=== PATIENT | male | born 1955 | race Caucasian/White ===

== ENCOUNTER 2024-08-26 22:59 | Inpatient (IN) | payer MEDICARE ==
[~2024-08-26] VITALS: Ht 185.4 cm; Wt 75.0 kg
[2024-08-26 23:34] LABS: BASOPHILS % (AUTO) 0.7 % (0-1); EOSINOPHILS # (AUTO) 0.1 X10'3 (0-0.9); EOSINOPHILS % (AUTO) 2.3 % (0-6); HEMATOCRIT 40.4 % (42.0-52.0); HEMOGLOBIN 13.7 g/dl (14.0-17.9); LYMPHOCYTES % (AUTO) 20.3 % (21-51); MEAN CORPUSCULAR HEMOGLOBIN 31.5 PG (27.0-31.0); MEAN CORPUSCULAR VOLUME 92.7 FL (78-98); MEAN PLATELET VOLUME 9.9 FL (7.4-10.4); MONOCYTES # (AUTO) 0.4 X10'3 (0-0.9); MONOCYTES % (AUTO) 7.5 % (2-12); NEUTROPHILS # (AUTO) 3.4 X10'3 (1.8-7.7); NEUTROPHILS % (AUTO) 69.2 % (42-75); PLATELET COUNT 125 X10'3 (140-440); RED BLOOD COUNT 4.36 X10'6 (4.70-6.10); RED CELL DISTRIBUTION WIDTH 15.8 % (11.5-14.5); WHITE BLOOD COUNT 4.9 X10'3 (4.5-11.0)
[2024-08-26 23:46] LABS: ALANINE AMINOTRANSFERASE 49 U/L (12-78); ALBUMIN/GLOBULIN RATIO 1.3 (1.1-1.5); ALKALINE PHOSPHATASE 117 IU/L (46-116); ANION GAP 8 (8-16); ASPARTATE AMINO TRANSFERASE 33 U/L (10-37); BILIRUBIN,TOTAL 1.4 MG/DL (0.1-1.0); BLOOD UREA NITROGEN 17 MG/DL (7-18); BUN/CREATININE RATIO 19.1 (10.0-20.0); CALCIUM 8.6 MG/DL (8.5-10.1); CHLORIDE 105 MMOL/L (99-107); CREATININE 0.89 MG/DL (0.60-1.10); GLUCOSE 226 MG/DL (70-104); SODIUM 140 MMOL/L (135-145); TOTAL CARBON DIOXIDE 27.1 MMOL/L (24-32); eCRCL 83 ML/MIN; eGFR 85 ML/MIN
[2024-08-26 23:55] LABS: PRO BRAIN NATRIURETIC PEPTIDE 3291 PG/ML (0-125)
[2024-08-27] VITALS (8 sets, daily range): BP systolic 110–130; BP diastolic 69–95; PULSE 86–97; RESP 15–24; TEMP 97.6–98; O2SAT 95–97
[2024-08-27] MEDS ORDERED: diltiazem-D5W 125mg/125ml 125 ML IV SCH (01:20)
[2024-08-27] MEDS: diltiazem-NS 100mg/100ml 100 ML IV SCH (01:48)
[2024-08-27] MEDS ORDERED: potassium Cl 40MEQ/1/2NS 520ml 520 ML IV PRN (02:05)
[2024-08-27] MEDS ORDERED: mag hydrox/Alum hydrox/simeth 30ml oral suspension PO PRN (02:05)
[2024-08-27] MEDS ORDERED: magnesium sulf-water 2g/50mL 50 ML IV PRN (02:05)
[2024-08-27] MEDS ORDERED: ondansetron/PF 4mg/2ml inj IV PRN (02:05)
[2024-08-27] MEDS ORDERED: magnesium hydroxide 30ml (MOM) UD suspension PO PRN (02:05)
[2024-08-27] MEDS ORDERED: magnesium sulf-water 4G/100mL 100 ML IV PRN (02:05)
[2024-08-27] MEDS ORDERED: potassium Cl 20 mEq SR tablet PO PRN (02:05)
[2024-08-27 02:46] LABS: MAGNESIUM 1.3 MG/DL (1.5-2.4)
[2024-08-27 02:49] LABS: APTT 27 SECONDS (22-32); INR 1.2 INR; PROTHROMBIN TIME 12.1 SECONDS (9.0-12.0)
[2024-08-27 02:54] LABS: HEMOGLOBIN A1C 9.2 % (4.5-6.2)
[2024-08-27] MEDS: furosemide 10 MG/1 ML 10ml inj IV SCH (03:00)
[2024-08-27] MEDS ORDERED: GLIP10TA18 PO (03:45)
[2024-08-27] MEDS ORDERED: METF-436 PO (03:45)
[2024-08-27] MEDS ORDERED: ATOR10TA87 PO (03:45)
[2024-08-27] MEDS ORDERED: DAPA10TA PO (03:45)
[2024-08-27] MEDS ORDERED: DEXTROSE 15 GM of carb/4 tabs (each vial/BOTTLE has 4 tablets) PO PRN ×2 (06:20)
[2024-08-27] MEDS ORDERED: dextrose 50%-water 50ml dispensing syringe IV PRN ×2 (06:20)
[2024-08-27] MEDS ORDERED: glucagon, human recombinant 1mg kit SUBCUT PRN (06:20)
[2024-08-27] MEDS: INSULIN LISPRO 100 UNIT/ML INSULN.PEN MULTI-DOSE SQ SCH ×2 (07:27→09:05)
[2024-08-27] MEDS: K and/or MAG REPLACEMENT MC SCH (07:40)
[2024-08-27] MEDS: apixaban 5mg tablet PO SCH (07:40)
[2024-08-27] MEDS: docusate sod 100mg capsule PO SCH (07:40)
[2024-08-27] MEDS: acetaminophen 325mg tablet PO PRN (14:28)
[2024-08-27] MEDS: Melatonin 3mg tablet PO ONE (23:02)
[2024-08-27] MEDS: insulin glargine (Lantus) pen - multi-dose SQ SCH (23:10)
[2024-08-27] MEDS: magnesium Cl slow-release 64mg tablet PO PRN (23:15)
[2024-08-28] VITALS (9 sets, daily range): BP systolic 101–115; BP diastolic 75–86; PULSE 77–116; RESP 16–23; TEMP 97.9–98.6; O2SAT 94–100
[2024-08-28 07:01] LABS: BASOPHILS % (AUTO) 0.7 % (0-1); EOSINOPHILS # (AUTO) 0.1 X10'3 (0-0.9); HEMOGLOBIN 12.9 g/dl (14.0-17.9); LYMPHOCYTES # (AUTO) 1.2 X10'3 (1.1-4.8); MONOCYTES # (AUTO) 0.5 X10'3 (0-0.9)
[2024-08-28 07:03] LABS: EOSINOPHILS % (AUTO) 2.5 % (0-6); HEMATOCRIT 37.2 % (42.0-52.0); LYMPHOCYTES % (AUTO) 33.8 % (21-51); MEAN CORPUSCULAR HGB CONC 34.6 g/dL (33.0-36.5); MEAN CORPUSCULAR VOLUME 92.6 FL (78-98); MEAN PLATELET VOLUME 10.2 FL (7.4-10.4); MONOCYTES % (AUTO) 12.4 % (2-12); NEUTROPHILS # (AUTO) 1.9 X10'3 (1.8-7.7); NEUTROPHILS % (AUTO) 50.6 % (42-75); PLATELET COUNT 107 X10'3 (140-440); RED BLOOD COUNT 4.02 X10'6 (4.70-6.10); RED CELL DISTRIBUTION WIDTH 15.8 % (11.5-14.5); WHITE BLOOD COUNT 3.7 X10'3 (4.5-11.0)
[2024-08-28 07:35] LABS: ALANINE AMINOTRANSFERASE 33 U/L (12-78); ALBUMIN 3.3 G/DL (3.4-5.0); ALBUMIN/GLOBULIN RATIO 1.1 (1.1-1.5); ALKALINE PHOSPHATASE 96 IU/L (46-116); ANION GAP 10 (8-16); ASPARTATE AMINO TRANSFERASE 24 U/L (10-37); BILIRUBIN,TOTAL 1.4 MG/DL (0.1-1.0); BLOOD UREA NITROGEN 19 MG/DL (7-18); BUN/CREATININE RATIO 20.4 (10.0-20.0); CALCIUM 8.5 MG/DL (8.5-10.1); CHLORIDE 105 MMOL/L (99-107); CHOL/HDL RATIO 2.4 (0.00-4.99); CHOLESTEROL 125 MG/DL (0-200); CREATININE 0.93 MG/DL (0.60-1.10); GLUCOSE 175 MG/DL (70-104); HDL CHOLESTEROL 52 MG/DL (35-60); LDL CHOLESTEROL 67 MG/DL (50-100); MAGNESIUM 1.4 MG/DL (1.5-2.4); POTASSIUM 3.9 MMOL/L (3.5-5.1); SODIUM 140 MMOL/L (135-145); TOTAL CARBON DIOXIDE 25.2 MMOL/L (24-32); TOTAL PROTEIN 6.3 G/DL (6.4-8.2); TRIGLYCERIDES 35 MG/DL (20-135); eCRCL 80 ML/MIN; eGFR 81 ML/MIN
[2024-08-28] MEDS: DAPAGLIFLOZIN 10MG TABLET PO SCH (13:32)
[2024-08-28] MEDS: metoprolol succinate 25mg (24-HOUR) SR. Tablet PO SCH (13:34)
[2024-08-28] MEDS: Melatonin 3mg tablet PO SCH (22:37)
[2024-08-28] MEDS: benzonatate 100mg capsule PO PRN (22:37)
[2024-08-29 02:00] VITALS: BP 136/82; PULSE 100; RESP 16; TEMP 98.6; O2SAT 95
[2024-08-29 06:00] VITALS: BP 100/76; PULSE 96; RESP 18; TEMP 98.8; O2SAT 95
[2024-08-29 07:05] LABS: ALANINE AMINOTRANSFERASE 30 U/L (12-78); ALBUMIN 3.3 G/DL (3.4-5.0); ALKALINE PHOSPHATASE 99 IU/L (46-116); ANION GAP 8 (8-16); ASPARTATE AMINO TRANSFERASE 26 U/L (10-37); BLOOD UREA NITROGEN 23 MG/DL (7-18); BUN/CREATININE RATIO 21.5 (10.0-20.0); CALCIUM 8.7 MG/DL (8.5-10.1); CHLORIDE 105 MMOL/L (99-107); CREATININE 1.07 MG/DL (0.60-1.10); GLUCOSE 118 MG/DL (70-104); MAGNESIUM 1.5 MG/DL (1.5-2.4); POTASSIUM 3.9 MMOL/L (3.5-5.1); SODIUM 140 MMOL/L (135-145); TOTAL CARBON DIOXIDE 27.1 MMOL/L (24-32); TOTAL PROTEIN 6.6 G/DL (6.4-8.2); eCRCL 69 ML/MIN; eGFR 69 ML/MIN
[2024-08-29 07:16] LABS: BASOPHILS % (AUTO) 0.5 % (0-1); EOSINOPHILS # (AUTO) 0.1 X10'3 (0-0.9); EOSINOPHILS % (AUTO) 3.1 % (0-6); HEMATOCRIT 39.3 % (42.0-52.0); HEMOGLOBIN 13.4 g/dl (14.0-17.9); LYMPHOCYTES # (AUTO) 1.2 X10'3 (1.1-4.8); LYMPHOCYTES % (AUTO) 28.1 % (21-51); MEAN CORPUSCULAR HEMOGLOBIN 31.3 PG (27.0-31.0); MEAN CORPUSCULAR HGB CONC 34.2 g/dL (33.0-36.5); MEAN CORPUSCULAR VOLUME 91.6 FL (78-98); MEAN PLATELET VOLUME 10.4 FL (7.4-10.4); MONOCYTES # (AUTO) 0.5 X10'3 (0-0.9); MONOCYTES % (AUTO) 11.2 % (2-12); NEUTROPHILS # (AUTO) 2.5 X10'3 (1.8-7.7); NEUTROPHILS % (AUTO) 57.1 % (42-75); PLATELET COUNT 112 X10'3 (140-440); RED BLOOD COUNT 4.29 X10'6 (4.70-6.10); RED CELL DISTRIBUTION WIDTH 15.7 % (11.5-14.5); WHITE BLOOD COUNT 4.4 X10'3 (4.5-11.0)
[2024-08-29 08:00] VITALS: BP_SYST 97; PULSE 96
[2024-08-29] MEDS: lisinopril 2.5mg tablet PO SCH (08:00)
[2024-08-29] MEDS: potassium Cl 20 mEq SR tablet PO PRN (09:40)
[2024-08-29 10:00] VITALS: RESP 18; O2SAT 95
[2024-08-29] MEDS ORDERED: LISI2.5T14 PO (11:34)
[2024-08-29] MEDS ORDERED: METO-395 PO (11:34)
[2024-08-29] MEDS ORDERED: APIX5TAB3 PO (11:34)
[2024-08-29] MEDS ORDERED: Melatonin 3mg tablet PO SCH (21:00)
[2024-08-30] MEDS ORDERED: METO50TA7 PO (18:07)
== END 2024-08-29 13:07 | disposition home or self-care (01) | DRG 308 ==
LOC: ER 23:01 → ED HOLD 08-27 02:09 → PCU 3S 08-27 11:19
PROVIDERS: ADMIT Internal Medicine Critical Care Medicine; ATTEND Internal Medicine
DX: I48.91 Unspecified atrial fibrillation (principal); I50.23 Acute on chronic systolic (congestive) heart failure; E78.5 Hyperlipidemia, unspecified; Z20.822 Contact with and (suspected) exposure to COVID-19; E11.65 Type 2 diabetes mellitus with hyperglycemia; Z79.01 Long term (current) use of anticoagulants; Z79.84 Long term (current) use of oral hypoglycemic drugs; Z79.899 Other long term (current) drug therapy
CPT/HCPCS: 36415; 71045; 80053; 80061; 82948; 83036; 83735; 83880; 84145; 84484; 85025; 85610; 85730; 87502; 87503; 87811; 93005; 93306; 97161; 97530; 99285; A4615; A6590; G0378; J1815; J1940; J3490